=== PATIENT | female | born 2000 | race Hispanic/Latino ===

== ENCOUNTER 2023-06-07 08:20 | Emergency (ER) | payer BC, MEDICAID, OTHER ==
[~2023-06-07] VITALS: Ht 154.9 cm; Wt 81.6 kg
[2023-06-07] MEDS ORDERED: MORPHINE 4 MG SYG IVP ONE (09:30)
[2023-06-07] MEDS ORDERED: KETOROLAC 30MG VIAL (30MG/ML) IVP ONE (09:30)
[2023-06-07] MEDS ORDERED: ONDANSETRON 4MG INJ IVP ONE (09:30)
[2023-06-07] MEDS ORDERED: IBUP-2077 PO (09:34)
[2023-06-07 09:38] VITALS: BP 133/75
== END 2023-06-07 10:01 | disposition home or self-care (01) ==
LOC: EDH 08:20
DX: S93.491A Sprain of other ligament of right ankle, initial encounter (principal); W18.39XA Other fall on same level, initial encounter; Y93.89 Activity, other specified; Y92.89 Other specified places as the place of occurrence of the external cause; Y99.8 Other external cause status
CPT/HCPCS: 99284; 96374; 96375; 73600; 29125; J2405; J2270